=== PATIENT | male | born 1995 | race Hispanic/Latino ===

== ENCOUNTER 2018-10-11 07:13 | Emergency (ER) | payer SELFPAY ==
[2018-10-11] MEDS ORDERED: LIDOCAINE HCL 1% 20 ML VIAL ONE (07:32)
[2018-10-11] MEDS ORDERED: TETANUS/DIPHTHERIA TOXOID [ADULT] 0.5 ML VIAL IM ONE (07:53)
== END 2018-10-11 08:17 | disposition home or self-care (01) ==
LOC: EDH 07:13
DX: S51.811A Laceration without foreign body of right forearm, initial encounter (principal); W27.8XXA Contact with other nonpowered hand tool, initial encounter; Y93.89 Activity, other specified; Y92.098 Other place in other non-institutional residence as the place of occurrence of the external cause; Y99.8 Other external cause status
CPT/HCPCS: 12032; 90471; 90714

== ENCOUNTER 2018-10-23 11:19 | Emergency (ER) | payer SELFPAY | END 2018-10-23 12:12 | disposition home or self-care (01) | LOC: EDH 11:19 | DX: S61.511D Laceration without foreign body of right wrist, subsequent encounter (principal); X58.XXXD Exposure to other specified factors, subsequent encounter ==

== ENCOUNTER 2019-03-10 23:07 | Emergency (ER) | payer SELFPAY ==
[2019-03-10] MEDS ORDERED: SODIUM CHLORIDE 0.9% 1000ML 1,000 ML IV ONE (23:16)
== END 2019-03-10 23:43 | disposition home or self-care (01) ==
LOC: EDH 23:07
DX: J45.909 Unspecified asthma, uncomplicated (principal)
CPT/HCPCS: 71046; 99284; J7030